=== PATIENT | male | born 1985 | race Hispanic/Latino ===

== ENCOUNTER 2019-05-17 20:11 | Emergency (ER) | payer OTHER ==
[~2019-05-17] VITALS: Ht 170.2 cm; Wt 191.0 kg
[~2019-05-17 20:11] MED LIST: BENADRYL 50MG C50 MG PO; ELIMITE5 % EX; LISINOPRIL20 MG PO; MEDDOSEPAK OR; MEDDOSEPAK PO; NO; PEPCID20 MG PO
[2019-05-17 21:11] VITALS: BP 139/74
== END 2019-05-17 21:11 | disposition home or self-care (01) | DRG 301 ==
LOC: ED 20:11
PROC: 0HQLXZZ Repair Left Lower Leg Skin, External Approach (ICD-10-PCS; principal; 2019-05-17)
DX: I83.892 Varicose veins of left lower extremity with other complications (principal); I10 Essential (primary) hypertension

== ENCOUNTER 2022-07-07 09:11 | Emergency (ER) | payer SELFPAY ==
[~2022-07-07] VITALS: Ht 170.2 cm; Wt 137.0 kg
[2022-07-07 09:32] VITALS: BP 152/113
[2022-07-07 09:41] VITALS: BP 180/107
[2022-07-07] MEDS ORDERED: METFORMIN HCL500 M1 PO ×2 (09:43→09:52)
[2022-07-07] MEDS ORDERED: LISINOPRIL20 M1 PO (09:52)
[2022-07-07] MEDS ORDERED: MUPIROCIN21 TOP (09:57)
== END 2022-07-07 10:00 | disposition home or self-care (01) | DRG 730 ==
LOC: ED 09:11
DX: S31.21XA Laceration without foreign body of penis, initial encounter (principal); I10 Essential (primary) hypertension; E11.9 Type 2 diabetes mellitus without complications; Z79.84 Long term (current) use of oral hypoglycemic drugs; X58.XXXA Exposure to other specified factors, initial encounter